=== PATIENT | female | born 1940 | race Caucasian/White ===

== ENCOUNTER → 2017-03-17 | Outpatient (CLI) | payer OTHER | LOC: FIMAGING 12:38 | PROVIDERS: ATTEND Internal Medicine Geriatric Medicine | DX: R29.898 Other symptoms and signs involving the musculoskeletal system (principal); M54.31 Sciatica, right side; M19.90 Unspecified osteoarthritis, unspecified site; M51.26 Other intervertebral disc displacement, lumbar region ==

== ENCOUNTER → 2018-10-25 | Outpatient (CLI) | payer OTHER | LOC: FIMAGING 09:16 | PROVIDERS: ATTEND Internal Medicine Geriatric Medicine | DX: K22.70 Barrett's esophagus without dysplasia (principal); R10.11 Right upper quadrant pain ==